=== PATIENT | female | born 1965 | race Hispanic/Latino ===

== ENCOUNTER 2018-08-10 09:55 | Day surgery (SDC) | payer BC ==
[2018-08-09 12:17] VITALS: BMI 24.5
[2018-08-10] MEDS ORDERED: Midazolam 2 MG/2 ML VIAL ONE (12:59)
[2018-08-10] MEDS ORDERED: Propofol 10 mg/ml Inj (20 ML) ONE ×2 (12:59→13:02)
[2018-08-10 13:24] VITALS: O2SAT 100
[2018-08-10 13:32] VITALS: PULSE 73
[2018-08-10 14:07] VITALS: TEMP 98
[2018-08-10 14:14] VITALS: BP 107/53; RESP 15
== END 2018-08-10 14:10 | disposition home or self-care (01) ==
LOC: C.ENDO 09:55
PROVIDERS: ATTEND Internal Medicine Gastroenterology
DX: Z12.11 Encounter for screening for malignant neoplasm of colon (principal); K64.1 Second degree hemorrhoids; F41.8 Other specified anxiety disorders; K63.5 Polyp of colon